=== PATIENT | male | born 1990 | race American Indian/Alaskan Native ===

== ENCOUNTER 2020-10-28 22:49 | Emergency (ER) | payer SELFPAY ==
[2020-10-28 23:54] VITALS: BP 140/78
[2020-10-28] MEDS ORDERED: FLUORESCEIN 1 MG STRIP OP ONE (23:54)
[2020-10-28] MEDS ORDERED: TETRACAINE 0.5% OPHTH SOLN 4ML OU ONE (23:54)
--- NOTE | 2020-10-28 23:57 | Emergency Department Report ---
ED General Adult HPI - General Stated complaint: POSS PINKEYE/REDNESS/ICHY - History of Present Illness Initial comments: 30-year-old male patient presents to the emergency department with complaints of bilateral pain/swelling/discharge from his eyes, right greater than left, star ting 2 days ago. Patient states he was seen at another hospital and diagnosed with conjunctivitis. He has been using antibiotic eyedrops with limited relief. He is now complaining of blurred vision, particularly in the right eye. He does not wear glasses or contacts. No history of UV light exposure reported. Denies fever, chills, ear pain, sore throat, diplopia, vision loss. Denies all other complaints at this time. - Related Data Previous Rx's Medication Instructions Recorded Last Taken Type Erythromycin [Erythromycin Ophth 10 applic OP TID 7 Days #1 tube 10/29/20 Unknown Rx Oint] Allergies Allergy/AdvReac Type Severity Reaction Status Date / Time No Known Allergies Allergy Unverified 10/29/20 00:04 ED Review of Systems ROS: Stated complaint: POSS PINKEYE/REDNESS/ICHY Other details as noted in HPI Other: GENERAL: Negative for fever. EYES: Positive for pain/swelling/redness/drainage. CARDIOVASCULAR: Negative for chest pain. PULMONARY: Negative for shortness of breath. GASTROINTESTINAL: Negative for abdominal pain. MUSCULOSKELETAL: Negative for back pain. NEUROLOGICAL: Negative for headache. INTEGUMENTARY: Negative for rash. ED Past Medical Hx - Medications Home Medications: Home Medications Medication Instructions Recorded Confirmed Last Taken Type Erythromycin [Erythromycin Ophth 10 applic OP TID 7 Days #1 tube 10/29/20 Un known Rx Oint] ED Physical Exam - Other Other exam information: General: Awake, appropriately interactive, no acute distress. Eyes: PERRL. Extraocular movements painless and intact. No proptosis. Conjugate gaze. Conjunctival are edematous and injected bilaterally, right > left, with purulent discharge noted from the right eye. Sclera injected bilaterally. Tetracaine was used for local anesthesia. Fluorescein strip was used. Calvert lamp was used for visualization. No fluorescein uptake noted. No corneal abrasions. No corneal ulcerations. No foreign body found. See MDM for visual acuity. Neck: Supple. Full range of motion intact. Cardiovascular: Normal peripheral perfusion. Pulmonary: No respiratory distress. Patient is speaking normally without use of accessory muscles. Skin: No apparent rashes or lesions. Neurological: No facial asymmetry. Speech is clear. Follows commands. Patient is alert and oriented. Musculoskeletal: Moves all four extremities spontaneously with normal range of motion. Psych: Cooperative. Appropriate mood and affect. ED Course Vital Signs 10/28/20 23:53 Temperature 98.6 F Pulse Rate 83 Respiratory 18 Rate Blood Pressure 140/78 O2 Sat by Pulse 98 Oximetry ED Medical Decision Making - Medical Decision Making Differential diagnosis including but not limited to: conjunctivitis, UV keratitis, corneal abrasion, corneal ulcer, periorbital cellulitis, orbital c ellulitis, retrobulbar hematoma, sinusitis VISUAL ACUITY: Left Eye = 20/20 Right Eye: 20/25 Patient presents emergency department with signs/symptoms of bilateral conjunctivitis. Visual acuity obtained and documented. Patient is otherwise healthy, no signs of systemic illness, afebrile and hemodynamically stable. Patient is already using prescription eyedrops; he cannot recall the name of the medication, and does not specifically know if these drops are antibiotics. Patient will be discharged home with antibiotic ointment to use in conjunction with previously prescribed eyedrops and referred to ophthalmology for close outpatient follow-up. 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 Patient expressed understanding and is agreeable to plan of care. Strict return precautions provided. Repeat exam is unremarkable and benign. History, exam, diagnostic testing, and current condition do not suggest worrisome pathology to warrant further testing, continued ED treatment, admission, or surgical evaluation at this point. Given the low probability of a significant medical illness, it would be more likely to result in harm than benefit to perform further testing at this stage. Discussed findings, presumptive diagnosis, need for follow-up and specific signs/symptoms that should prompt immediate return to the emergency department. Instructions were explained in detail to the patient in addition to giving written discharge information. Patient expressed understanding and was given the opportunity to ask questions, all of which were satisfactorily answered prior to discharge home. Critical care attestation.: If time is entered above; I have spent that time in minutes in the direct care of this critically ill patient, excluding procedure time. ED Disposition Clinical Impression: Bilateral conjunctivitis Qualifiers: Conjunctivitis type: acute Acute conjunctivitis type: unspecified Qualified Code(s): H10.33 - Unspecified acute conjunctivitis, bilateral Disposition: DC-01 TO HOME OR SELFCARE Is pt being admited?: No Does the pt Need Aspirin: No Condition: Stable Instructions: How to Use Eye Drops and Eye Ointments Additional Instructions: Continue eyedrops as previously prescribed. Use Erythromycin ophthalmic ointment as directed. Apply cool compresses to the eyes as needed for swelling. Wash hands frequently. Avoid rubbing your eyes. Change your pillowcases. Follow-up with ophthalmology this week. Call tomorrow to schedule an appointment. Return to the emergency department immediately for new or worsening symptoms. Specifically, return to the emergency department immediately for fever, increased pain/swelling, worsening vision, or any other concerns. Prescriptions: Erythromycin [Erythromycin Ophth Oint] 10 applic OP TID 7 Days #1 tube Referrals: AMOR LEE MD [Staff Physician] - 3-5 Days JENNIFER LOWRY MD [Staff Physician] - 3-5 Days Time of Disposition: 00:14
== END 2020-10-29 00:45 | disposition home or self-care (01) ==
LOC: ED 22:49
DX: H10.33 Unspecified acute conjunctivitis, bilateral (principal)
CPT/HCPCS: 99282

== ENCOUNTER 2021-10-23 15:41 | Emergency (ER) | payer SELFPAY ==
[2021-10-23 16:59] VITALS: BP 110/73
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
== END 2021-10-23 17:00 | disposition home or self-care (01) ==
LOC: ED 15:41
DX: H10.9 Unspecified conjunctivitis (principal)
CPT/HCPCS: 99281